=== PATIENT | female | born 1975 | race Caucasian/White ===

== ENCOUNTER 2017-05-19 07:28 | Day surgery (SDC) | payer OTHER ==
[~2017-05-19] VITALS: Ht 165.1 cm; Wt 85.1 kg
[2017-05-19 07:54] VITALS: Ht 165.1 cm; Wt 85.1 kg
[2017-05-19 09:09] VITALS: BP 113/65; PULSE 60; RESP 10
[2017-05-19] MEDS ORDERED: MIDAZOLAM 1 MG/ML 2 ML INJ ONE ×2 (09:41)
[2017-05-19] MEDS ORDERED: FENTAnyl 50 MCG/ML VIAL ONE (09:41)
--- NOTE | 2017-05-19 09:43 | OPPN ---
Date/Time of Note Date/Time of Note DATE: 05/19/17 TIME: 09:41 Proc Note GI Procedure Date 05/19/17 Indication: diagnostic Pre-procedure Diagnosis anemia Post-procedure Diagnosis normal Procedure Performed: Colonoscopy Surgeon see signature line Drying Room Supervisor none Anesthesia Type: moderate sedation Tourniquet Time none EBL none Transfusion required none Biopsy 1: none Grafts/Implants none Tubes/Drains none Complication(s) none Procedure Description coolonoscopy normal MARAL MCCABE MD May 19, 2017 09:43
--- NOTE | 2017-05-20 05:04 | GILP ---
DATE OF PROCEDURE: 05/19/2017 NAME OF PROCEDURE: Colonoscopy. PREOPERATIVE DIAGNOSIS: Screening colonoscopy to rule out colon polyps. POSTOPERATIVE DIAGNOSIS: Normal examination. DESCRIPTION OF PROCEDURE: After informed written consent was obtained, the patient was asked to lie on the left lateral side. The patient was given 3 mg Versed and 75 mcg of fentanyl as intravenous anesthesia. When the patient became somnolent, the Olympus video colonoscope was introduced into the rectum and scope was advanced all the way to the cecum. The entire colon appeared perfectly normal with no muc osal abnormality. Scope at this time was withdrawn from the cecum. On the way out, further evaluat ion was carried out and no polyps noted. No hemorrhoids noted and the procedure was terminated. PLAN: Recommend high fiber diet. Recommend colonoscopy in 10 years. Dictated By: MARAL MCCABE MD NC/NTS Conf#: [id number] DID#: [id number] CC: Bessy Paredes MD;*EndCC*
== END 2017-05-19 11:24 | disposition home or self-care (01) ==
LOC: GIL 07:28
PROVIDERS: ATTEND Internal Medicine Gastroenterology
DX: Z12.11 Encounter for screening for malignant neoplasm of colon (principal)
CPT/HCPCS: 45378; 84703; J2250; J3010